=== PATIENT | female | born 1985 | race Hispanic/Latino ===

== ENCOUNTER 2020-04-02 09:30 | Emergency (ER) | payer OTHER ==
[2020-04-03 12:18] LABS: SARS-CoV-2 MS2 Positive; SARS-CoV-2 N Gene Positive; SARS-CoV-2 S Gene Positive; SARS-CoV-2 orf1ab Positive
== END 2020-04-02 09:53 | disposition home or self-care (01) ==
LOC: ERS 09:30
DX: U07.1 COVID-19 (principal)
CPT/HCPCS: 87635; 99283; U0003

== ENCOUNTER 2022-11-13 13:44 | Emergency (ER) | payer OTHER ==
[2022-11-13] MEDS ORDERED: Metoclopramide HCl 10 MG/2 ML VIAL ONE (16:27)
[2022-11-13] MEDS ORDERED: diphenhydrAMINE 50 MG/ML VIAL ONE (16:27)
[2022-11-13] MEDS ORDERED: diphenhydrAMINE 50 MG CAP ONE (16:27)
[2022-11-13] MEDS ORDERED: Dexamethasone 10 MG/ML VIAL ONE (17:58)
== END 2022-11-13 18:20 | disposition home or self-care (01) ==
LOC: ERS 13:44
DX: R51.9 Headache, unspecified (principal)
CPT/HCPCS: 96365; 96375; J1100; J1200; J2765